=== PATIENT | male | born 1990 | race Caucasian/White ===

== ENCOUNTER → 2020-01-07 | Outpatient (CLI) | payer OTHER ==
--- NOTE | 2020-01-07 13:06 | RAD ---
FINGER(S) LEFT DATE: 01/07/2020 12:00 AM INDICATION: Left thumb injury COMPARISON: None. FINDINGS: Bones: There is no evidence of acute fracture or dislocation. Joints: The joint spaces are normal. Miscellaneous: No radiopaque foreign bodies. IMPRESSION: No evidence of acute fracture. Electronically signed by: Ba Marina MD (01/07/2020 1:04 PM) [id number]
== END ==
LOC: RAD 12:33
PROVIDERS: ATTEND Physician Assistant
DX: S69.92XA Unspecified injury of left wrist, hand and finger(s), initial encounter (principal); X58.XXXA Exposure to other specified factors, initial encounter; Y93.89 Activity, other specified; Y92.89 Other specified places as the place of occurrence of the external cause; Y99.8 Other external cause status
CPT/HCPCS: 73140

== ENCOUNTER → 2020-03-22 | Outpatient (CLI) | payer OTHER ==
[2020-03-22 17:47] LABS: BASO % 1 % (0-3); EOS # 0.2 x10^3/uL (0.0-0.7); EOS % 2 % (0-3); HEMATOCRIT 46.3 % (39.0-53.0); HEMOGLOBIN 15.8 g/dL (13.0-17.5); LYMPH # 1.5 x10^3/uL (1.0-4.8); LYMPH % 19 % (24-48); MEAN CORPUSCULAR HEMOGLOBIN 31 pg (25-35); MEAN CORPUSCULAR HGB CONC 34 g/dL (31-37); MEAN CORPUSCULAR VOLUME 91 fL (79-100); MONO # 0.7 x10^3/uL (0.0-1.1); MONO % 9 % (0-9); NEUT # 5.8 x10^3uL (1.8-7.7); NEUT % 70 % (31-73); PLATELET COUNT 193 x10^3/uL (140-400); RED BLOOD COUNT 5.11 x10^6/uL (4.30-5.70); WHITE BLOOD COUNT 8.3 x10^3/uL (4.0-11.0)
[2020-03-22 18:13] LABS: C REACTIVE PROTEIN 19.8 mg/L (0-3.3); URIC ACID 5.1 mg/dL (3.5-7.2)
== END | disposition home or self-care (01) ==
LOC: LAB 16:31
PROVIDERS: ATTEND Physician Assistant
DX: M25.461 Effusion, right knee (principal)
CPT/HCPCS: 36415; 84550; 85025; 86140

== ENCOUNTER → 2020-03-22 | Outpatient (CLI) | payer OTHER ==
--- NOTE | 2020-03-22 15:45 | RAD ---
Three-view right knee dated 04/11/2020. No comparison available. Clinical data indication: Knee pain. FINDINGS: 3 views of the right knee show normal bony alignment. No displaced fracture. There is soft tissue swelling over the patella. No apparent joint effusion or loose body. No acute osseous or articular abnormality. IMPRESSION: Soft tissue swelling with no apparent underlying acute bony abnormality. Electronically signed by: Pierce Weeks MD (03/22/2020 3:43 PM) MARY
== END | disposition home or self-care (01) ==
LOC: RAD 15:15
PROVIDERS: ATTEND Physician Assistant
DX: M25.461 Effusion, right knee (principal); M79.89 Other specified soft tissue disorders
CPT/HCPCS: 73564

== ENCOUNTER 2021-07-15 14:32 | Emergency (ER) | payer OTHER ==
[~2021-07-15] VITALS: Ht 172.7 cm; Wt 83.5 kg
[2021-07-15 15:00] VITALS: BP 130/79
[2021-07-15] MEDS ORDERED: TETRACAINE 0.5% OPHTH SOLUTION 4ML BOTTLE. ONE (15:41)
[2021-07-15] MEDS ORDERED: FLUORESCEIN 1MG EYE STRIP. ONE (15:41)
[2021-07-15] MEDS ORDERED: FLUORESCEIN 1MG EYE STRIP. OD ONE (15:45)
[2021-07-15] MEDS ORDERED: TETRACAINE 0.5% OPHTH SOLUTION 4ML BOTTLE. OD ONE (15:45)
[2021-07-15] MEDS ORDERED: ERYT1OIN3 OD (16:26)
--- NOTE | 2021-07-15 16:26 | PHYS DOC ---
Past History Past Surgical History: No Surgical History (TYE FUENTES APRN) Alcohol Use: None (TYE FUENTES APRN) General Adult EDM: Chief Complaint: EYE PROBLEMS HPI: HPI: Patient is a 41-year-old male who presents to the emergency department today for right eye redness and swelling that started today. Patient reports that he was in a crawl space doing some work and he smashed a spider and spider "God's" got in his eye. Patient denies any eye pain, vision changes or itching. (TYE FUENTES APRN) Review of Systems: Review of Systems: Eyes: See HPI HENT: See HPI (TYE FUENTES APRN) Current Medications: Current Meds: Current Medications Medications (Trade) Dose Ordered Sig/Charlee Start Time Stop Time Status Last Admin Dose Admin Fluorescein Sodium (Ful-Arabella 1mg) 1 strip 1X ONCE 07/15/21 15:45 07/15/21 15:46 DC 07/15/21 15:49 1 STRIP Tetracaine HCl (Tetracaine) 40 drop STK-MED ONCE 07/15/21 15:41 07/15/21 15:41 DC (TYE FUENTES APRN) Allergies: Allergies: Allergies Coded Allergies Type Severity Reaction Last Updated Verified Iodinated Contrast Media Allergy Severe 07/15/21 Yes (TYE FUENTES APRN) Physical Exam: PE: Constitutional: Well developed, well nourished, no acute distress, non-toxic appearance. [] HENT: Normocephalic, atraumatic, bilateral external ears normal, oropharynx moist, no oral exudates, nose normal. [] Eyes: PERRL, EOMI, conjunctiva and sclera erythematous, mild swelling noted to right upper eyelid, tearing, no discharge. [] Neck: Normal range of motion, no stridor Cardiovascular:Heart rate regular rhythm, no murmur [] Lungs & Thorax: Bilateral breath sounds clear to auscultation [] Abdomen: Bowel sounds normal, soft, no tenderness, no masses, no pulsatile masses. [] Skin: Warm, dry, no erythema, no rash. [] Back: Normal range of motion Extremities: No tenderness, no cyanosis, no clubbing, ROM intact, no edema. [] Neurologic: Alert and oriented X 3, normal motor function, normal sensory function, no focal deficits noted. [] Psychologic: Affect normal, judgement normal, mood normal. [] (TYE FUENTES APRN) Current Patient Data: Vital Signs: Vital Signs Date Time Temp Pulse Resp B/P (MAP) Pulse Ox O2 Delivery O2 Flow Rate FiO2 07/15/21 15:00 98.3 70 16 130/79 (96) 94 Room Air (TYE FUENTES APRN) EKG: EKG: [] (TYE FUENTES APRN) Radiology/Procedures: Radiology/Procedures: [] (TYE FUENTES APRN) Heart Score: C/O Chest Pain: N/A Risk Factors: Risk Factors: DM, Current or recent (<one month) smoker, HTN, HLP, family h istory of CAD, obesity. Risk Scores: Score 0 - 3: 2.5% MACE over next 6 weeks - Discharge Home Score 4 - 6: 20.3% MACE over next 6 weeks - Admit for Clinical Observation Score 7 - 10: 72.7% MACE over next 6 weeks - Early Invasive Strategies (TYE FUENTES APRN) Course & Med Decision Making: Course & Med Decision Making Pertinent Labs and Imaging studies reviewed. (See chart for details) [] Patient presents emergency department for right eye swelling and redness. Patient believes that he parts of it smash spider that got into his eye. Patient denies any vision changes or itching. I was flushed in the ER. Tetracaine and fluorescein used with the slit-lamp, no foreign body noted ami ent was noted to have a scleral abrasion which will be treated with an antibiotic. Patient also advised to follow-up with an director funds development. I discussed with patient all findings and diagnostic testing as well as the need to follow-up with PCP for further evaluation and treatment or return to the ER if any new or worsening symptoms. Strict return precautions were also discussed at length. Patient voiced understanding and agreement with the plan. Patient is hemodynamically stable at the time of disposition. (TYE FUENTES APRN) Dragon Disclaimer: Dragon Disclaimer: This electronic medical record was generated, in whole or in part, using a voice recognition dictation system. (TYE FUENTES APRN) Attending Co-Sign The patient was seen and interviewed as well as examined at the bedside. The chart was reviewed. The case was discussed. Agree with the plan of care. (ANGELO ERICKSON DO) Departure Departure: Impression: Primary Impression: Eye abrasion Qualified Codes: S05.8X1A - Other injuries of right eye and orbit, initial encounter Disposition: HOME / SELF CARE / HOMELESS Condition: GOOD Referrals: PCP,NO (PCP) Patient Instructions: Eye - Corneal Abrasion Additional Instructions: You were seen in the emergency department for right eye redness and eyelid swelling. It does not appear that you have any foreign body in your eye, however you have a small abrasion to your sclera. Please use the antibiotic eye ointment as directed. If your symptoms persist you may need to follow-up with an director funds development. Please return to the emergency department if you develop any eye pain, vision loss or any worsening concerns. Scripts Erythromycin Base (Erythromycin) 1 Gm Oint...g. 1 GM OD QID for abrasion for 5 Days, #1 MISC 0 Refills apply 1/2 in ribbon 4 times per day Prov: TYE FUENTES APRN 07/15/21 TYE FUENTES APRN Jul 15, 2021 16:26 ANGELO ERICKSON DO Jul 18, 2021 10:47
== END 2021-07-15 16:36 | disposition home or self-care (01) ==
LOC: ER 14:32
DX: S05.8X1A Other injuries of right eye and orbit, initial encounter (principal); Z91.041 Radiographic dye allergy status; X58.XXXA Exposure to other specified factors, initial encounter; Y93.89 Activity, other specified; Y92.89 Other specified places as the place of occurrence of the external cause; Y99.8 Other external cause status
CPT/HCPCS: 99283

== ENCOUNTER → 2021-10-07 | Outpatient (CLI) | payer OTHER ==
[~2021-10-07] MED LIST: ERYT1OIN3 OD
--- NOTE | 2021-10-07 15:06 | RAD ---
EXAM: Left foot, 3 views. HISTORY: Pain. COMPARISON: None. FINDINGS: 3 views of the left foot are obtained. There is a minimally displaced fracture involving th e base of the first distal phalanx. There are 4 x 1 mm radiodense foreign bodies overlying the soft t issues at the base of the fourth toe. IMPRESSION: 1. Minimally displaced fracture the base of the first distal phalanx. 2. Tiny linear radiodense foreign bodies overlying the soft tissues at the base of the fourth toe. Electronically signed by: Madison Anderson MD (10/07/2021 3:04 PM) [id number]
== END ==
LOC: RAD 14:09
PROVIDERS: ATTEND Podiatrist
DX: S92.422A Displaced fracture of distal phalanx of left great toe, initial encounter for closed fracture (principal); M79.5 Residual foreign body in soft tissue; X58.XXXA Exposure to other specified factors, initial encounter; Y93.89 Activity, other specified; Y92.89 Other specified places as the place of occurrence of the external cause; Y99.8 Other external cause status
CPT/HCPCS: 73630